=== PATIENT | female | born 1990 | race Caucasian/White ===

== ENCOUNTER → 2021-12-18 | Outpatient (CLI) | payer OTHER, SELFPAY ==
[2021-12-18 17:11] LABS: Hematocrit 33.8 % (37-47); Hemoglobin 11.5 g/dL (12.0-15.0); Mean Corpuscular Hgb 32.4 pg (27.0-32.0); Mean Corpuscular Volume 95.2 fL (81-99); Mean Platelet Vol. 9.6 fl (6.2-12.0); Platelet Count 205 K/mm3 (150-450); RBC Distribution Width CV 12.4 % (11.6-14.6); RBC Distribution Width SD 43.6 fl (35.1-43.9); Red Blood Count 3.55 M/mm3 (4.2-5.4); White Blood Count 10.7 K/mm3 (4.4-11.0)
[2021-12-18 17:33] LABS: Glucose Challenge Gest 1H 50g 142 mg/dL (70-140)
== END | disposition home or self-care (01) ==
LOC: WOBLAB 16:42
PROVIDERS: Visit Provider Student in an Organized Health Care Education/Training Program
DX: Z34.83 Encounter for supervision of other normal pregnancy, third trimester (principal)
CPT/HCPCS: 36415; 82950; 85027

== ENCOUNTER → 2022-01-02 | Outpatient (CLI) | payer OTHER, SELFPAY ==
[2022-01-02 10:07] LABS: Glucose GTT-Gestation. Fasting 83 mg/dL (<105)
[2022-01-02 11:32] LABS: Glucose GTT-Gestational 1 Hr 148 mg/dL (<190)
[2022-01-02 11:45] LABS: Glucose GTT-Gestational 2 Hr 124 mg/dL (<165)
[2022-01-02 13:40] LABS: Glucose GTT-Gestational 3 Hr 101 L (<145)
== END | disposition home or self-care (01) ==
LOC: WOBLAB 08:49
PROVIDERS: Visit Provider Student in an Organized Health Care Education/Training Program
DX: O24.912 Unspecified diabetes mellitus in pregnancy, second trimester (principal)
CPT/HCPCS: 36415; 82951; 82952

== ENCOUNTER → 2022-03-08 | Outpatient (CLI) | payer OTHER, SELFPAY | END | disposition home or self-care (01) | LOC: LABSPEC 03-09 08:45 | PROVIDERS: Visit Provider Obstetrics & Gynecology | DX: Z36.85 Encounter for antenatal screening for Streptococcus B (principal) | CPT/HCPCS: 87081 ==

== ENCOUNTER 2022-04-14 06:00 | Inpatient (IN) | payer OTHER, SELFPAY ==
[2022-04-13 22:38] VITALS: BP 130/69; PULSE 76
[2022-04-13 22:39] VITALS: PULSE 84; TEMP 36.7; O2SAT 97
[2022-04-13 22:41] VITALS: BMI 24.4
[2022-04-13 23:30] VITALS: PULSE 74; O2SAT 97
[2022-04-14] VITALS (28 sets, daily range): BP systolic 108–133; BP diastolic 55–72; PULSE 69–104; RESP 16–18; TEMP 36.3–37.7; O2SAT 97–99
[2022-04-14 06:38] LABS: Absolute Lymphocyte Count 2.46 X10^3/uL (0.83-4.51); Absolute Neutrophil Count 10.2 X10^3/uL (2.0-7.7); Basophil# 0.03 X10^3/uL; Basophil% 0.2 % (0-1); Eosinophil# 0.01 X10^3/uL; Eosinophils% 0.1 % (0-5); Hematocrit 34.2 % (37-47); Hemoglobin 11.5 g/dL (12.0-15.0); Lymphocyte # 2.46 X10^3/ul (0.83-4.51); Lymphocyte % 18.1 % (19-41); Mean Corp Hgb Conc 33.6 g/dL (32-36); Mean Corpuscular Hgb 30.2 pg (27.0-32.0); Mean Corpuscular Volume 89.8 fL (81-99); Mean Platelet Vol. 10.3 fl (6.2-12.0); Monocyte# 0.85 X10^3/uL; Monocyte% 6.3 % (0-10); NRBC Flagged by Analyzer 0 % (0-5); Neutrophil # 10.19 X10^3/uL (2.7-7.7); Neutrophil % 74.9 % (47-70); Platelet Count 198 K/mm3 (150-450); RBC Distribution Width CV 13.2 % (11.6-14.6); RBC Distribution Width SD 43.1 fl (35.1-43.9); Red Blood Count 3.81 M/mm3 (4.2-5.4); White Blood Count 13.6 K/mm3 (4.4-11.0)
[2022-04-14 09:35] LABS: HIV - WCH Non-Reactive (Nonreactive); Hepatitis C Antibody Non-Reactive (Nonreactive)
[2022-04-14 09:53] LABS: Chlamydia Trachomatis by PCR Negative (Negative); Neisserai gonorrhoeae by PCR Negative (Negative); Probe Check PASS; Sample Adequacy Control PASS; Specimen Processing Control PASS
--- NOTE | 2022-04-14 10:21 | PCM.HP.BLA ---
History and Physical Date of Admission: 04/13/22 Chief complaint: Contractions History present illness: 32-year-old G3, P1 at 41 weeks and 2 days with SEBASTIAN 04/04/2022 arrives with contractions. Denies headache, visual changes, chest pain, shortness of breath, nausea vomiting, right upper quadrant pain. Patient states good movement. is complicated by history of section desires [place] Obstetric history: G1: SAB G2: 39-week primary section for breech G3: Current Past medical history: None Medications: vitamin Allergies: No known drug allergies Past surgical history: section Social history: Denies smoking, alcohol use, drug use Family history: Denies history DVT or PE Review of systems: Besides above pertinent positives a full review of systems was performed and found to be negative Physical exam: Vitals: Blood pressure 121/66 pulse 86 temp 99.1 Fahrenheit SPO2 99% on room air General: Normal-appearing no acute distress HEENT: Normocephalic/atraumatic no cervical lymphadenopathy Cardiac/respiratory: No successor muscles, nonlabored breathing Abdomen: Soft, nontender, gravid Extremities: No peripheral edema normal peripheral pulses Psych: Normal affect normal demeanor nonpressured speech Labs: White blood cell count 13.6 hemoglobin 11.5 hematocrit 34.2% platelets 198. Blood type a positive antibody negative Assessment plan: 32-year-old at 41 weeks and 2 days with contractions history of section desires [place]. Risk benefits alternatives discussed, patient understands risks of TOLAC. All questions answered and consent signed. Admit labor and delivery CEFM GBS negative Routine orders
--- NOTE | 2022-04-14 11:38 | PN.OBGYN_ITS ---
Subjective Subjective Patient feeling contractions Objective Data Objective Data Vital Signs: Vital Signs Temp Pulse BP Pulse Ox 99.1 F 86 121/66 H 99 04/14/22 09:33 04/14/22 09:33 04/14/22 09:33 04/14/22 09:33 Weight: 165 lb 8 oz Body Mass Index (BMI) 24.4 Lab / Micro Data Result Diagrams: 04/14/22 06:15 Labs: Laboratory Results - last 24 hr 04/14/22 06:15: WBC 13.6 H, RBC 3.81 L, Hgb 11.5 L, Hct 34.2 L, MCV 89.8, MCH 30.2, MCHC 33.6, RDW Std Deviation 43.1, RDW Coeff of [place] 13.2, Plt Count 198, MPV 10.3, Immature Gran % (Auto) 0.400, Neut % (Auto) 74.9 H, Lymph % (Auto) 18.1 L, [place] % (Auto) 6.3, Eos % (Auto) 0.1, Baso % (Auto) 0.2, Absolute Neuts (auto) 10.2 H, Absolute Lymphs (auto) 2.46, Nucleated RBC % 0 04/14/22 06:15: Blood Type A POSITIVE, Antibody Screen NEGATIVE 04/14/22 06:15: Hepatitis C Antibody Non-Reactive, HIV 1&2 Antibody Non-Reactive 04/14/22 07:15: Chlam trachomat DNA PCR Negative, N.gonorrhoeae DNA (PCR) N egative Micro: Microbiology 04/14/22 06:15 Nasal Secretion SARS-CoV-2 Antigen (Rapid) - Final Physical Exam Const alert, oriented x3, no apparent distress, average body habitus, healthy appearing and well nourished HEENT normocephalic and moist oral mucous membranes Eyes PERRL Neck full ROM Resp normal respiratory effort, no retractions and no use of accessory muscles GI GI Narrative: Soft, nontender, gravid Narrative: Cervical exam 5-6/80/-1. AROM minimal blood-tinged fluid Extremity normal to inspection, full ROM and no clubbing, cyanosis or edema Neuro moves all extremities, no focal motor deficits and no sensory deficits noted Psych mental status grossly normal, affect normal, speech normal and activity/motor behavior normal Assessment & Plan (1) : PLAN: Patient seen and examined. AROM. Continue current management
[2022-04-14] MEDS: 0.9% Saline Lock 10 ML Syringe IV ×2 (13:05→15:58)
[2022-04-14] MEDS: Lactated Ringers 1,000 ML 50 ML IV (13:05)
[2022-04-14] MEDS: Oxytocin 30 units/NS 500 ml 30 UNITS/500 ML IV.SOLN 334 UNITS IV (13:22)
[2022-04-14] MEDS: Methylergonovine 0.2 MG/ML Ampul IM (13:25)
--- NOTE | 2022-04-14 13:48 | EX.PCM.OBRPT ---
Vaginal Delivery Findings Description of Procedure: Normal spontaneous vaginal delivery of a viable male , vertex ISAEL. Head and shoulders delivered with ease. Cord cut and clamped. Baby handed off to patient. Placenta delivered via cord traction and fundal massage. Methergine IM given for short second stage of labor. Second-degree midline perineal laceration and bilateral labial laceration noted and repaired in typical fashion. EBL 400 cc Apgars 8/9
[2022-04-15] VITALS (9 sets, daily range): BP systolic 101–117; BP diastolic 56–65; PULSE 80–98; RESP 15–18; TEMP 37–37.1; O2SAT 96–97
--- NOTE | 2022-04-15 10:18 | DS.PCM_ITS ---
Discharge Summary Date of Admission: 04/13/22 Date of Discharge: 04/15/22 Summary: Patient arrived on 04/13/2022 in labor. Subsequently delivered vaginally 04/14/2022. Routine recovery. Discharge home on 04/15/2022 Meaningful Use Info Meaningful Use Diagnoses (Choose all that apply): None applicable Discharge Plan Admission Admit Date/Time: 04/14/22 06:00 Primary Reason for Your Visit: Labor Attending Provider: Aroldo Boyd Primary Care Provider: Care PhysicianEleni Primary Instructions Additional Instructions / Restrictions: Regular diet. Okay to shower. No intercourse for 4 to 6 weeks. Weightbearing as tolerated. Call if fevers, chills, chest pain, shortness of breath. Follow- up 4 to 6 weeks Discharge Orders/Prescriptions Referrals / Follow Up: Care Physician,Eleni Primary [Primary Care Provider] - Disposition Disposition (needs filled in before D/C Order can be placed): Home, Self Care
--- NOTE | 2022-04-15 10:19 | PCM.PN.OB ---
Subjective Subjective No overnight complaints Objective Data Objective Data Vital Signs: Vital Signs Temp Pulse Resp BP Pulse Ox O2 Del Method 98.6 F 91 18 104/56 L 97 Room Air 04/15/22 08:46 04/15/22 08:47 04/15/22 08:46 04/15/22 08:46 04/15/22 08:47 04/15/22 08:46 Oxygen Delivery Method Room Air Weight: 165 lb 8 oz Body Mass Index (BMI) 24.4 Intake & Output: Intake and Output for Last 24 Hours 04/13/22 04/14/22 04/15/22 23:59 23:59 23:59 Intake Total 514.17 / 514.17 Output Total 1400 / 1400 Balance -885.83 / -885.83 Lab / Micro Data Result Diagrams: 04/14/22 06:15 Micro: Microbiology 04/14/22 06:15 Nasal Secretion SARS-CoV-2 Antigen (Rapid) - Final Physical Exam Const alert, oriented x3, no apparent distress, average body habitus, healthy appearing and well nourished HEENT normocephalic and moist oral mucous membranes Eyes PERRL Neck full ROM Resp normal respiratory effort, no retractions and no use of accessory muscles GI GI Narrative: Soft, nontender, uterus firm and below umbilicus Extremity normal to inspection, full ROM and no clubbing, cyanosis or edema Neuro moves all extremities and no focal motor deficits Psych mental status grossly normal, affect normal, speech normal and activity/motor behavior normal Assessment & Plan (1) : PLAN: day 1 status post . Breast-feeding. Pain well controlled. Okay to discharge home today if okay with speech and language tutor
== END 2022-04-15 16:10 | disposition home or self-care (01) | DRG 807 ==
LOC: WPOUT 06:07 → WP 06:07
PROVIDERS: Admitting Provider Obstetrics & Gynecology; Visit Provider Obstetrics & Gynecology
DX: O70.1 Second degree perineal laceration during delivery (principal); Z37.0 Single live birth; O34.219 Maternal care for unspecified type scar from previous cesarean delivery; O48.0 Post-term pregnancy; Z3A.41 41 weeks gestation of pregnancy
CPT/HCPCS: 59025; 59050; 85025; 86703; 86803; 86850; 86900; 86901; 87426; 87491; 87591; 99218; J7120; A4216; G0378